=== PATIENT | male | born 1970 | race American Indian/Alaskan Native ===

== ENCOUNTER 2017-05-02 21:50 | Emergency (ER) | payer MEDICAID ==
[2017-05-02 22:00] VITALS: RESP 20; O2SAT 100
[2017-05-02] MEDS ORDERED: Sodium Chloride 0.9% 1,000 ML IV ONE (23:12)
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
[2017-05-02] MEDS ORDERED: Sodium Chloride 0.9% 100 ML ONE (23:45)
[2017-05-02 23:50] LABS: BASO # 0.1 K/uL (0.0-0.2); BASO % 0.9 % (0.0-2.0); EOS # 0.1 K/uL (0.0-0.7); EOS % 1.9 % (0.0-4.0); HEMATOCRIT 35.9 % (35.0-51.0); LYMPH # 3.4 K/uL (1.0-4.3); LYMPH % 45.3 % (20.0-40.0); MEAN CELL VOLUME 83.6 fL (80.0-94.0); MEAN CORPUSCULAR HEMOGLOBIN 26.9 pg (27.0-31.0); MEAN CORPUSCULAR HGB CONC 32.2 g/dL (33.0-37.0); MEAN PLATELET VOLUME 10.4 fL (7.2-11.7); MONO # 0.5 K/uL (0.0-0.8); MONO % 6.8 % (0.0-10.0); NRBC % 0.1 % (0.0-2.0); RED CELL DISTRIBUTION WIDTH 14.8 % (11.5-14.5); WHITE BLOOD COUNT 7.5 K/uL (4.8-10.8)
[2017-05-03 00:08] LABS: CHLORIDE 98 mmol/L (98-107); POTASSIUM 3.5 mmol/L (3.6-5.2); SODIUM 138 mmol/L (132-148)
[2017-05-03 00:10] LABS: AST/SGOT 27 U/L (17-59); BILIRUBIN,TOTAL 0.7 mg/dL (0.2-1.3); CARBON DIOXIDE 31 mmol/L (22-30); GFR AFRICAN-AMERICAN > 60
[2017-05-03 00:11] LABS: ALB/GLOB RATIO 1.3 (1.0-2.1); ALKALINE PHOSPHATASE 54 U/L (38-126); ALT/SGPT 22 U/L (21-72); BLOOD UREA NITROGEN 19 mg/dL (9-20); CALCIUM 9.8 mg/dl (8.6-10.4); GLUCOSE,RANDOM 104 mg/dL (75-110); TOTAL PROTEIN 7.3 g/dL (6.3-8.3)
[2017-05-03] MEDS ORDERED: Iodixanol 320 MG/ML 100 ML BOTTLE IV ONE (01:05)
--- NOTE | 2017-05-03 02:38 | CT ---
EXAM: CT Pelvis With Intravenous Contrast CLINICAL HISTORY: 47 years old, male; Pain and signs and symptoms; Mass, lump, or swelling; Other: Right groin swelling; Pelvic pain TECHNIQUE: Axial computed tomography images of the pelvis with intravenous contrast. This CT exam was performed using one or more of the following dose reduction techniques: automated exposure control, adjustment of the mA and/or kV according to patient size, and/or use of iterative reconstruction technique. Coronal and sagittal reformatted images were created and reviewed. CONTRAST: 100 mL of [id number] administered intravenously. COMPARISON: No relevant prior studies available. FINDINGS: Bowel: Unremarkable. No obstruction. No mucosal thickening. Appendix: No findings to suggest acute appendicitis. Intraperitoneal space: Unremarkable. No free air. No significant fluid collection. Bladder: Unremarkable. No mass. Reproductive: Unremarkable as visualized. Bones/joints: No acute fracture. No dislocation. Soft tissues: Infiltration of the soft tissues of the perineum, to the right of midline. No discrete fluid collection is detected. No fistulous tract is noted. Vasculature: Unremarkable. Lymph nodes: Unremarkable. No enlarged lymph nodes. IMPRESSION: Infiltration of the right perineal soft tissues, as detailed above.
[2017-05-03 03:13] VITALS: BP 140/72; PULSE 84; TEMP 97
== END 2017-05-03 03:13 | disposition home or self-care (01) ==
LOC: SUPCPDRO 21:50 → C.ER 21:50
DX: M79.89 Other specified soft tissue disorders (principal)
CPT/HCPCS: 72193; 80053; 85025; 96360; 99284; J7040; Q9967